=== PATIENT | female | born 1960 | race Caucasian/White ===

== ENCOUNTER → 2017-06-14 | Outpatient (CLI) | payer BC ==
[2017-06-14 14:02] LABS: CHOLESTEROL/HDL RATIO 4.5
== END | disposition home or self-care (01) ==
LOC: C.LABMFLN 08:15
PROVIDERS: ATTEND Family Medicine
DX: E78.00 Pure hypercholesterolemia, unspecified (principal)

== ENCOUNTER 2022-06-23 05:01 | Observation (INO) ==
--- NOTE | 2022-05-25 11:08 | PAT Medication Instructions ---
Medication Instructions Date of Service May 25, 2022 Home Medications Lactobacillus rhamnosus GG 10 billion cell capsule (Culturelle) 1 cap PO QAM alprazolam 0.25 mg tablet 0.25 mg PO UD PRN escitalopram oxalate 20 mg tablet (Lexapro) 20 mg PO QAM DO NOT take the morning of surgery Lactobacillus rhamnosus GG 10 billion cell capsule (Culturelle) 1 cap PO QAM Take morning of surgery With a small sip of water, OTHERWISE NOTHING TO EAT OR DRINK AFTER MIDNIGHT: alprazolam 0.25 mg tablet 0.25 mg PO UD PRN (if needed) escitalopram oxalate 20 mg tablet (Lexapro) 20 mg PO QAM Take evening before surgery alprazolam 0.25 mg tablet 0.25 mg PO UD PRN (if needed) Other Notes If you have any questions please call us at [phone] or [phone] or [phone] or [phone]
--- NOTE | 2022-05-28 13:33 | Anesthesiology Consultation ---
Date of Service May 28, 2022 Assessment & Plan (1) Encounter for pre-operative examination: - Patient acceptable risk for surgery pending surgeon-ordered PCP preop evaluation ([facility]; 06/10). - COVID screening: Per assessment on 05/28: No known COVID-19 positive contacts or current COVID-19 related symptoms. Travel screen- plan for upcoming travel to [place] (05/30-06/05). Patient vaccinated. Surgeon arranging preop COVID testing. Awaiting results. Chart Review Chart Review: Patient seen in Pre Admission Testing History Surgery Operation Date: 06/23/22 09:25 Proposed Procedures p Right Total Knee Arthroplasty - Jared Reyes MD Height/Weight Height: 5 ft 5.5 in Weight: 91.9 kg Allergies Allergy/AdvReac Type Severity Reaction Status Date / Time No Known Allergies Allergy Verified 05/21/22 11:49 Medications Home Medications Medication Instructions Recorded Confirmed Last Taken Lactobacillus rhamnosus GG 10 1 cap PO QAM 05/21/22 05/21/22 Unknown billion cell capsule (Culturelle) alprazolam 0.25 mg tablet 0.25 mg PO UD PRN 05/21/22 05/21/22 Unknown escitalopram oxalate 20 mg tablet 20 mg PO QAM 05/21/22 05/21/22 Unknown (Lexapro) Past Medical History Medical History Generalized anxiety disorder Obesity Osteoarthritis of knees, bilateral Personal history of breast cancer 2004 > right breast lumpectomy, chemo, xrt, herceptin No limb restriction per pt Personal history of lung cancer 2008 s/p right wedge resection Exercise / Class Metabolic Activity II 4-5 Yardwork/Stairs/Walk up hill Past Family History Family History Mother Myocardial infarction Father Myocardial infarction Brother Myocardial infarction Other No pertinent family history Denies family history of Ovarian cancer Prostate cancer Breast cancer Past Surgical History Surgical History History of ankle surgery Left History of breast biopsy History of delivery History of colonoscopy Most recent 10 years ago, upcoming colonoscopy scheduled 06/08/22 History of lumpectomy of right breast History of tonsillectomy History of tubal ligation S/P lobectomy of lung Right wedge resection Past Anesthesia History No Hx of Anesthesia Complications and No Family Hx of Anesthesia Complications History of PONV No Hx of PONV and No Hx of Motion Sickness Social History Smoking Status: Former smoker tobacco type: cigarettes Do You Dip or Chew Tobacco: No Smoking End Date: SMOKED 25 YR AGO , QUIT 2004 Hx Alcohol Use: Yes (SOCIALLY) Alcohol type: beer, wine and hard liquor alcohol intake frequency: holidays/special occasions only Hx Substance Use: No substance use type: does not use Review of Systems Patient denies chest pain, shortness of breath, dyspnea on exertion, fever, chills, cough, wheezing, palpitations. Physical Exam Vital Signs VITALS BP 120/72 P 74 TEMP 98.4 SP02 97%RA RESP 18 PHYSICAL Full cervical extension range of motion. Full TMJ range of motion. TMD 3 finger breaths Mallampati Score 3 Dentition: upper/lower partials Lungs: clear throughout to auscultation Cardiac: regular rate and rhythm, no murmurs noted Spine: normal Carotid arteries: negative bruit Extremities: no edema Lab Results Anesthesia Preop Results Results Anesthesia Widget: WBC 3.86 K/ul (4.8-10.8) L 05/28/22 Hgb 13.2 g/dl (12.0-16.0) 05/28/22 Hct 40.1 % (34.1-44.9) 05/28/22 Plt 194 K/uL (130-400) 05/28/22 Na 138 mmol/L (136-145) 05/28/22 K 3.9 mmol/L (3.5-5.1) 05/28/22 Cl 104 mmol/L (98-107) 05/28/22 CO2 28 mmol/L (21-32) 05/28/22 BUN 16 mg/dl (6-23) 05/28/22 Creat 0.80 mg/dl (0.6-1.2) 05/28/22 Glucose Level 123 mg/dl (70-99(Fasting)) H 05/28/22 PT 10.6 Seconds (9.0-12.0) 05/28/22 PTT 23.9 Seconds (21.0-31.0) 05/28/22 INR 1.0 (0.9-1.1) 05/28/22 HA1c 5.8 % (4.5-5.6) H 05/28/22 Urine Color Yellow 05/28/22 Urine Appearance Clear (Clear) 05/28/22 Urine pH 5.5 (4.5-7.5) 05/28/22 Urine Specific [place] 1.013 (1.000-1.030) 05/28/22 Urine Protein Negative (Negative) 05/28/22 Urine Glucose (UA) Negative (Negative) 05/28/22 Urine Ketones Negative (Negative) 05/28/22 Urine Blood Negative (Negative) 05/28/22 Urine Nitrite Negative (Negative) 05/28/22 Urine Bilirubin Negative (Negative) 05/28/22 Urine Urobilinogen Negative (Negative) 05/28/22 Urine Leukocyte Esterase Negative (Negative) 05/28/22 Blood Type A Positive 05/28/22 Antibody Screen NEGATIVE 05/28/22 Testing Laboratory Results Low WBC > surgeon's office made aware. Electrocardiogram Date: 05/28/22 NSR at 68bpm. Possible inferior infarct, age undetermined. Echocardiogram Date: 11/25/21 EF 60-65%. No regional motion abnormality. Moderate concentric LVH. No significant valvular disease. Grade 1 diastolic dysfunction. Borderline LAD. Stress Test Date: 08/31/21 Negative exercise stress ECG for ischemia at 94 % MPHR. No arrhythmia. Appropriate blood pressure response to exercise. No chest pain reported. Poor Exercise tolerance. 5.5 METS. Other Testing Chest CT (07/07/21) Redemonstrated postoperative changes of partial right upper lobe resection with staple line present. Minimal groundglass and linear scarring along the margin of the staple line is stable. Case described for millimeter right lower lobe lung nodule is not identified on current exam. Moderate atherosclerotic calcification of the coronary arteries. Few cysts are noted scattered in the liver. No significant new or enlarging lung nodule.
--- NOTE | 2022-06-22 21:39 | History & Physical Report ---
Date of Service June 22, 2022 Assessment & Plan (1) Primary osteoarthritis of right knee: Plan: Treatment options discussed with patient. She has failed conservative measures and would like to proceed with surgery. Risks, benefits and alternatives to surgery including but not limited to infection, DVT, pain, stiffness, need for revision surgery, damage to blood vessels, damage to nerves, PE, , were discussed with the patient and they wish to proceed. Plan on right total knee arthroplasty. Surgery scheduled for [facility] with Dr. Reyes on 06/22/22. Will plan on aspirin 81mg BID x 1 mo post op for DVT prophylaxis. Will plan on inpatient rehab. All questions answered. F/u post op. History of Present Illness Chief Complaint: Right knee pain Primary Care Provider: Cedrick Ramos MD 62 year old female with PMHx significant for hx of breast Ca, hx of lung Ca, anxiety presents with ongoing right knee pain. Pain interfering with her daily activities. She has failed conservative measures and would like to proceed with surgical intervention. Patient denies headaches, sweats, fevers, chills, double vision, blurred vision, cough, sore throat, dysphagia, chest pain, sob, wheezing, n/v/d/c, numbness, tingling, fatigue, urinary symptoms, mood disorders. ROS positive for right knee pain and stiffness. Allergies Allergy/AdvReac Type Severity Reaction Status Date / Time No Known Allergies Allergy Verified 05/21/22 11:49 Home Medications Medication Instructions Recorded Confirmed Type Lactobacillus rhamnosus GG 10 1 cap PO QAM 05/21/22 05/21/22 History billion cell capsule (Culturelle) escitalopram oxalate 20 mg tablet 20 mg PO QAM 05/21/22 05/21/22 History (Lexapro) Past Med/Surg History Medical History (Updated 06/22/22 @ 21:35 by Yariel Maki PA-C) Encounter for mammogram to establish baseline mammogram Generalized anxiety disorder History of adenocarcinoma of lung Obesity Osteoarthritis of knees, bilateral Personal history of breast cancer 2004 > right breast lumpectomy, chemo, xrt, herceptin No limb restriction per pt Personal history of lung cancer 2008 s/p right wedge resection Prediabetes Surgical History History of ankle surgery Left History of breast biopsy History of delivery History of colonoscopy Most recent 10 years ago, upcoming colonoscopy scheduled 06/08/22 History of lumpectomy of right breast History of tonsillectomy History of tubal ligation S/P lobectomy of lung Right wedge resection Family History Mother Myocardial infarction Father Myocardial infarction Brother Myocardial infarction Other No pertinent family history Denies family history of Ovarian cancer Prostate cancer Breast cancer Social History Smoking Status: Former smoker Hx Alcohol Use: Yes (SOCIALLY) Alcohol type: beer, wine and hard liquor Hx Substance Use: No Preferred Language: American Communication Ability: Effective Visual Impairment: No Limitations Hearing Ability: Use of Hearing Aid Training And Development Rep Required: No Beliefs That Will Affect Care: None marital status: Current Living Situation: Alone current occupational status: employed current occupation: [id number] Feels Safe at Home: Yes Childhood Exposure to Second-Hand Smoke: Yes caffeine: Yes during the past year weight has: increased > 10 lbs Dental Care, Regularly: Yes Physical Activity Frequency: 3-4 Times per Week Seatbelt Use: always Sunscreen Use: Yes Assistive Devices: Glasses Review of Systems All systems reviewed & are unremarkable except as noted in HPI & below Physical Exam Constitutional: well developed and well nourished; no acute distress Eyes: PERRL, conjunctivae normal, anicteric sclerae ENMT: external ear and nose normal, oropharynx normal Neck: trachea midline, no thyromegaly Respiratory: normal respiratory effort, lungs clear to auscultation Cardiovascular: RRR, no murmur, no edema Musculoskeletal: Right knee: Varus alignment. Tenderness medial joint line. Mild effusion. ROM 0-135 degrees. Stable to valgus and varus stress Skin: no rashes, warm and dry Neurologic: patellar DTR's 2+ bilat, sensation intact Psychiatric: A+Ox3, euthymic affect Results & Data ([facility]) Diagnostic Findings Right knee: Significant joint space narrowing medial compartment. There is periarticular osteophyte formation.
[2022-06-23] MEDS ORDERED: ceFAZolin 2000MG 2,000 MG/15 ML SYR IV SCH (06:00)
[2022-06-23] MEDS ORDERED: TRANEXAMIC ACID 1,000 MG **IV Pre-op IV SCH (06:00)
[2022-06-23] MEDS ORDERED: FAMOTIDINE 20 MG TAB PO SCH (06:00)
[2022-06-23] MEDS ORDERED: GABAPENTIN 600 MG DOSE PO SCH (06:00)
[2022-06-23] MEDS ORDERED: ROPIVACAINE 0.5% HCL/PF 150 MG, BUPIVACAINE 0.75% MPF 20 ML, EPINEPHrine 30MG/30ML (OR ... INSTIL SCH (06:00)
[2022-06-23] MEDS ORDERED: CeleBREX 200 MG CAP PO SCH (06:00)
[2022-06-23] MEDS ORDERED: ACETAMINOPHEN 500 MG TAB PO SCH (06:00)
[2022-06-23] MEDS ORDERED: METOCLOPRAMIDE HCL 10 MG TABLET PO SCH (06:00)
[2022-06-23] MEDS ORDERED: dexAMETHasone 4 MG TAB PO SCH (06:00)
[2022-06-23] MEDS ORDERED: TRANEXAMIC ACID 1,000 MG **IV Intra-op IV SCH (06:00)
[2022-06-23] MEDS ORDERED: LR 500ML BOLUS, THEN 15ML/HR IV SCH (06:00)
[2022-06-23] MEDS ORDERED: ROPIVACAINE 0.5% 5 MG/ML 30 ML VIAL ONE (06:28)
[2022-06-23] MEDS ORDERED: BUPIVACAINE 0.5 % 5 MG/1 ML PF 10ML VIAL ONE (06:28)
[2022-06-23] MEDS ORDERED: ORTHO JOINT ANESTHETIC ONE (06:59)
[2022-06-23] MEDS ORDERED: MIDAZOLAM HCL 1 MG/ML 2ML VIAL ONE (07:00)
[2022-06-23] MEDS ORDERED: LIDOCAINE 2% 20 MG/ML 5 ML SYR IV ONE (07:00)
[2022-06-23] MEDS ORDERED: PROPOFOL IV EMULSION 10 MG/ML 20 ML VIAL IV ONE ×3 (07:00→08:25)
[2022-06-23] MEDS ORDERED: fentaNYL citrate 100 MCG/2 ML VIAL ONE (07:01)
--- NOTE | 2022-06-23 07:01 | History & Physical Bridge Note ---
Date of Service June 23, 2022 History & Physical Bridge Note I have examined the patient, reviewed the History & Physical and in the interval since the performance of the History & Physical I have noted the following changes of clinical significance: no changes noted
[2022-06-23] MEDS ORDERED: PROMETHAZINE HCL 12.5 MG in SODIUM CHLORIDE 0.9% 50 ML IV PRN (07:41)
[2022-06-23] MEDS ORDERED: HYDROmorphone INJ 2 MG/ML SYR/VIAL IV PRN (07:41)
[2022-06-23] MEDS ORDERED: ePHEDrine sulfate 50 MG/ML AMP IV PRN (07:41)
[2022-06-23] MEDS ORDERED: ATROPINE SULFATE 0.1 MG/ML 10ML SYR IV PRN (07:41)
[2022-06-23] MEDS ORDERED: ONDANSETRON INJ 2 MG/ML 2 ML VIAL IV PRN ×2 (07:41→11:15)
[2022-06-23] MEDS ORDERED: fentaNYL citrate 100 MCG/2 ML VIAL IV PRN (07:41)
[2022-06-23] MEDS ORDERED: ONDANSETRON INJ 2 MG/ML 2 ML VIAL ONE (08:25)
--- NOTE | 2022-06-23 09:41 | Post Operative Brief Note ---
Immediate Post Op Note v1 Date of Surgery June 23, 2022 Pre & Post Diagnosis Operation Date: 06/23/22 07:15 Pre-Op Diagnosis: Right Knee Osteoarthritis Post-Op Diagnosis: Right Knee Osteoarthritis I identified the patient and participated in the time-out.: Yes Procedure Operation Date: 06/23/22 07:15 Actual Procedures p Right Total Knee Arthroplasty(Right) lateral release, application superficial wound VAC- Jared Reyes MD Surgeon Jared Reyes MD Mechanical Service Representative Jc MONTGOMERY Estimated Blood Loss 5 Findings Consistent with Post-Op Diagnosis Specimens Bone cuts Drains Hemovac Drain Anesthesia Type MAC Spinal Regional Complications none Disposition Disposition: Recovery Room Overlapping Procedure I was immediately available: during the entire case.
--- NOTE | 2022-06-23 09:58 | XRay Report ---
RIGHT KNEE 2 VIEWS History: Right total knee arthroplasty. Degenerative arthritis. Postop. FINDINGS: The patient is status post a right total knee arthroplasty. The hardware is intact. No frac ture or dislocation. Skin igor and surgical drains are in place. IMPRESSION: Right total knee arthroplasty. No evidence for hardware complication. ACT 112: Negative or not required by law. Electronically signed by: Polo Brooke M.D. 06/23/2022 9:57 AM
--- NOTE | 2022-06-23 10:24 | Operative Report ---
Post Operative Report Pre & Post Diagnosis Operation Date: 06/23/22 07:15 Pre-Op Diagnosis: Right Knee Osteoarthritis Post-Op Diagnosis: Right Knee Osteoarthritis I identified the patient and participated in the time-out.: Yes Procedure Operation Date: 06/23/22 07:15 Actual Procedures p Right Total Knee Arthroplasty(Right), lateral release, superficial wound VAC application- Jared Reyes MD Surgeon Jared Reyes MD Tire Mold Tester Jc MONTGOMERY Estimated Blood Loss 5 Findings Consistent with Post-Op Diagnosis Specimens Bone cuts Drains 2 Hemovac Anesthesia Type MAC Spinal Regional Complications none Disposition Disposition: Recovery Room Indications 62-year-old female with a chronic progressive exercise and right knee failed conservative management. Radiographs demonstrates she has varus knee [id number] medial compartment and moderately advanced patellofemoral osteoarthritis with patellofemoral osteophytes. Description of Procedure Patient was taken to the operating room placed supine on the operating table and anesthetized under spinal MAC regional block anesthesia. Exam under anesthesia demonstrated no instability slight flexion contracture of 5 degrees good flexion to at least 130 degrees and a small moderate effusion. A pneumatic tourniquet was placed about the moderately obese thigh of the right lower extremity. The right lower extremity was prepped and draped in usual sterile fashion. The leg was elevated exsanguinated with an Esmarch bandage and the pneumatic tourniquet was raised to 325 mm mercury. An anterior incision was made across the right knee. The skin was incised longitudinally subcutaneous flaps were elevated and an incision was made through the medial retinaculum extending up into the mid third of the quadriceps tendon and extended down to the medial tibial tubercle. Intra-articular findings demonstrated grade 4 eburnated bone medial compartment with a varus knee and grade 3 patellofemoral osteoarthritis with patellar osteophytes. The knee was exposed by excising the infrapatellar fat pad, excising the meniscal remnants and anterior cruciate ligament. Any inflamed synovial tissue was resected. The fat pad over the anterior femur was resected for placement of the component in that area. The lateral synovial bands were release. The femur was exposed. The custom femoral cutting block was pinned in position. The distal femoral cutting block was applied. The distal femoral cut was made with the oscillating saw. The size 10, 4-in-1 cutting block was placed . The anterior and posterior chamfer cuts were made. The knee was extended and a subperiosteal peel lateral release was performed around the patella. The patella width was measured and width was reproduced using freehand cut technique. The 35 x 9 millimeter symmetrical patella was used. 3 drill holes are made for the pegs. The tibia was exposed. A custom tibial cutting block was positioned and drill holes were made for the cutting guide. Cutting guide was placed and the proximal cut was made with the oscillating saw. All osteophytes were resected. The lamina care transitions manager was used to assess ligamentous balance and the ligaments were balanced in extension and flexion. This required medial and minor posterior medial release. The tibia was reexposed and measured for a size E tibial component. This was externally rotated in line with the tibial tubercle and the fixation pins were drilled. The proximal tibia was fashioned with the drill and punch. The size 10 CR femoral trial was inserted. The trial MC inserts were used. The 10 mm insert gave balanced ligaments through full range of motion. The patella tracked with some slight lateral tilt so I did a lateral release leaving the synovium intact and the patella tracked centrally. the trials were removed. The orthomix anesthetic cocktail was injected per protocol. The knee was then copiously irrigated with pulsatile lav age saline solution. The final components were cemented with Refobacin bone cement. The final components were [employer] persona 10 standard CR right femoral component, right E tibial component, 10 right MC polyethylene, 35 x 9 mm symmetrical patella. After the cement cured with the knee in full extension the Betadine soak was used per protocol. The knee joint was copiously irrigated with pulsatile lavage saline solution . 2 drains were brought out laterally and connected to a Hemovac. The quadriceps tendon and medial retinaculum were closed with interrupted [id number] #1 Vicryl sutures. The knee was taken through a full range of motion and repair was secure. The subcutaneous tissues were closed with 2-0 Vicryl sutures and skin was closed with igor. [place] and Acticoat superficial wound VAC was applied and the patient tolerated the procedure well. Jc MONTGOMERY my physician assistant professor of english, assisted in soft tissue retraction, instrument management ,leg positioning, the closure application superficial wound VAC and will participate in the postoperative care of the patient. I attest to the content of the Intraoperative Record and any orders documented therein. Any exceptions are noted below.
--- NOTE | 2022-06-23 10:58 | Anesthesiology Progress Note ---
Date of Service June 23, 2022 Anesthesia Post Procedure Vital Signs Vital Signs: Temp Pulse Resp BP Pulse Ox O2 Del Method O2 Flow Rate 06/23/22 10:10 53 L 12 112/68 95 Room Air 06/23/22 10:45 57 L 12 111/64 92 Room Air 06/23/22 10:30 36.4 C L 58 L 15 115/79 94 Room Air 06/23/22 10:20 60 12 112/63 94 Room Air 06/23/22 10:00 59 L 12 108/66 100 Oxymask 6 06/23/22 09:50 60 12 117/64 99 Oxymask 6 06/23/22 09:40 36.7 C 67 18 115/71 97 Oxymask 6 06/23/22 05:52 36.8 C 62 18 130/82 97 Room Air Transfer of Care Handoff Completed per policy Notes Mental Status: alert / awake / arousable and participated in evaluation Nausea / Vomiting: adequately controlled Pain: adequately controlled Airway Patency, RR, SpO2: stable & adequate BP & HR: stable & adequate Hydration State: stable & adequate Neuraxial Anesthesia: was administered and sensory block is resolving Anesthetic Complications: no major complications apparent and Pt Satisfied with anesthetic care
[2022-06-23] MEDS ORDERED: bisacodyL 10 MG SUPP PR PRN (11:15)
[2022-06-23] MEDS ORDERED: oxyCODONE HCL IR 5 MG TAB (IMMEDIATE RELEASE) PO PRN (11:15)
[2022-06-23] MEDS ORDERED: SODIUM CHLORIDE 0.9% 1000ML 1,000 ML IV SCH (11:15)
[2022-06-23] MEDS ORDERED: NALOXONE HCL 0.4 MG/1 ML VIAL/CARP IV PRN (11:15)
[2022-06-23] MEDS ORDERED: METOCLOPRAMIDE HCL INJ 5 MG/ML 2 ML VIAL IV PRN (11:15)
[2022-06-23] MEDS ORDERED: MAGNESIUM HYDROXIDE SUSP 30 ML UDC PO PRN (11:15)
[2022-06-23] MEDS ORDERED: HYDROmorphone INJ 0.5 MG/0.5 ML SYR IV PRN (11:15)
--- NOTE | 2022-06-23 11:55 | History & Physical Report ---
Date of Service June 23, 2022 Assessment & Plan Admission and Anticipated Discharge Date Admission Date: June 23, 2022 History of Present Illness Primary Care Provider: Cedrick Ramos MD Allergies Allergy/AdvReac Type Severity Reaction Status Date / Time No Known Allergies Allergy Verified 06/23/22 05:51 Home Medications Medication Instructions Recorded Confirmed Type Lactobacillus rhamnosus GG 10 1 cap PO QAM 05/21/22 06/23/22 History billion cell capsule (Culturelle) escitalopram oxalate 20 mg tablet 20 mg PO QAM 05/21/22 06/23/22 History (Lexapro) Past Med/Surg History Medical History Encounter for mammogram to establish baseline mammogram Generalized anxiety disorder History of adenocarcinoma of lung Obesity Osteoarthritis of knees, bilateral Personal history of breast cancer 2004 > right breast lumpectomy, chemo, xrt, herceptin No limb restriction per pt Personal history of lung cancer 2008 s/p right wedge resection Prediabetes Surgical History History of ankle surgery Left History of breast biopsy History of delivery History of colonoscopy Most recent 10 years ago, upcoming colonoscopy scheduled 06/08/22 History of lumpectomy of right breast History of tonsillectomy History of tubal ligation S/P lobectomy of lung Right wedge resection Family History Mother Myocardial infarction Father Myocardial infarction Brother Myocardial infarction Other No pertinent family history Denies family history of Ovarian cancer Prostate cancer Breast cancer Social History Smoking Status: Former smoker Smoking End Date: SMOKED 25 YR AGO , QUIT 2004; Do You Dip or Chew Tobacco: No; Hx Alcohol Use: Yes (SOCIALLY) Alcohol type: beer, wine and hard liquor Hx Substance Use: No Preferred Language: Frisian Communication Ability: Effective Visual Impairment: No Limitations Hearing Ability: Use of Hearing Aid Tug Boat Engineer Required: No Beliefs That Will Affect Care: None marital status: Current Living Situation: Alone current occupational status: employed current occupation: [id number] [place] Feels Safe at Home: Yes Childhood Exposure to Second-Hand Smoke: Yes caffeine: Yes during the past year weight has: increased > 10 lbs Dental Care, Regularly: Yes Physical Activity Frequency: 3-4 Times per Week Seatbelt Use: always Sunscreen Use: Yes Assistive Devices: Glasses Assistive Devices Comment: UPPER AND LOWER PARTIAL Results & Data Results & Data ([facility]) Vital Signs (Past 12 Hours) Vital Signs Temp Pulse Resp BP Pulse Ox O2 Del Method O2 Flow Rate 06/23/22 11:35 36.6 C 56 L 16 123/73 97 Room Air 06/23/22 11:05 36.7 C 54 L 14 127/74 94 Room Air 06/23/22 10:10 53 L 12 112/68 95 Room Air 06/23/22 10:45 57 L 12 111/64 92 Room Air 06/23/22 10:30 36.4 C L 58 L 15 115/79 94 Room Air 06/23/22 10:20 60 12 112/63 94 Room Air 06/23/22 10:00 59 L 12 108/66 100 Oxymask 6 06/23/22 09:50 60 12 117/64 99 Oxymask 6 06/23/22 09:40 36.7 C 67 18 115/71 97 Oxymask 6 06/23/22 05:52 36.8 C 62 18 130/82 97 Room Air Code Status & VTE Plan VTE Prophylaxis Plan VTE Prophylaxis will be ordered: Yes PG Care Time/CCT Total # of Minutes Spent Total Time Spent with Patient: Total time spent is greater than 50% in coordination of care (as documented) at patient's floor/unit and/or counseling patient: Coding
--- NOTE | 2022-06-23 11:57 | Hospitalist Consultation ---
Date of Consultation June 23, 2022 Assessment & Plan (1) Primary osteoarthritis of right knee: - s/p right TKA, POD #0, EBL 5cc, without complications, with [address]. - pain/abx/activity/IVF per primary team - ASA 81mg BID prescribed for VTE ppx per primary team - rescue narcan ordered prn. - incentive spirometry ordered - CBC and BMP in AM. - Cr on outpt labs may 2022 = 0.80, hgb = 13.2 (2) Dyslipidemia: - currently diet controlled, no medications. - last lipid panel in 2019: triglycerides 141, cholesterol 228, LDL 152, HDL 48 (3) Prediabetes: - a1c 06/11 = 5.8%, currently managed with diet/exercise. - check glucose on BMP in AM, no need for accucheks/SSI currently (4) Anxiety: - continue lexapro 20 mg daily. (5) Restrictive lung disease: - seen by pulm in October 2021, PFTS indicate moderate restrictive lung disease, normal GEGE and severe decrease in ERV without obstruction. - Chest CT without mediastinal lymphadenopathy, echo without abnormalities. - thought to be due to RUL wedge resection in 2008 for cancer as well as obesity - uses albuterol inhaler prn, has not used "in months", is available should patient request it. (6) History of adenocarcinoma of lung: - 2008, s/p RUL wedge resection. no additional treatment (7) Personal history of breast cancer: - in 2004, s/p right lumpectomy, chemotherapy, radiation. (8) BPPV (benign paroxysmal positional vertigo): - history of, currently without symptoms. Supervising Physician Co-Signing Physician Notes Patient seen and examined, chart reviewed, case discussed with Ria Choi PA-C and I agree with the assessment and plan as above except as otherwise noted above. General: A&Ox3. NAD. Cooperative. HEENT: Atraumatic, normocephalic. Vision/hearing intact. Pulm: CTAB A&P. -wheezes, -rales, -rhonchi. Symmetrical chest rise. No increased work of breathing. No respiratory distress. Cardiac: RRR, -mrg. Radial pulses intact and symmetrical. Abdominal: Nontender, nondistended, soft. BS present. Ext: RLE with post-op dressing/drain inplace. Toe flexion/extension intact. Sensation to soft touch intact but diminished in R toes compared to L, just starting to return postop per pt. Gabi is a 62yo F with a PMHx of RLD, BPPV, baseline EKG changes stable 07/2021- 08/2021 w/ normal stress echo EF 60% 11/2021, anxiety on lexapro previously weaned from alprazolam, preDM with A1C 5.8 05/2022, HLD s/p total R knee arthroplasty 06/23/22. Post-operatively doing well and hemodynamically stable, normal O2 sat on room air. R Knee OA s/p Total R Knee 06/23/22 w/ Dr. Reyes - Pain control/activity/DVT PPx per primary team - Currently taking APAP 1g Q8H with adequate pain control at time of assessment Pre-DM - Preop A1C 5.8% - Diet/Excercise controlled - AM BMP, - Goal BSG <140, +conservative SSI if significantly elevated Anxiety - Continue lexapro 20mg PO qAM RLD, hx wedge resection - Adenocarcinoma s/p wedge resection ~2008 - Last PFT 08/2021: FVC 71%, FEV1 73%, FEV1/FVC 101%, no signoficant post- bronchodilator response. - Mild restrictive lung disease on dana as above, some symptomatic benefit from albuterol PRN prescribed by pulm and reports has not needed recently. Can continue albuterol PRN for wheezing. - Normal Spo2 on room air, no wheezing, at respiratory baseline at time of consultation BPPV - No acute sx, no acute management at this time No renal dysfunction, cr <1 at baseline and at baseline on preop labs. BMP as noted Preop EKG: nsr, qtc 421ms, no ST segment abnormalities. Exercise stress test 08/2021 engative for ischemia at 94% MPHR and no arrhythmia. History of Present Illness Reason for Consultation: post-operative medication management Requesting Physician: Jared Reyes MD Attending Physician: Jared Reyes MD History of Present Illness Gabi Soria is a 62 y/o female with a PMH of hyperlipidemia and pre- diabetes both diet controlled, BPPV breast cancer in 2004 s/p right lumpectomy and chemo+radiation, lung cancer in 2008 s/p wedge resection, restrictive lung disease, and anxiety who was admitted today 06/23/22 for a right TKA with Dr. Reyes after failing conservative treatment. Hospitalist group was consulted for post-operative medication management. Today, she is POD#0 and feels well. Denies fever/chills, chest pain, palpitations, SOB, cough, abdominal pain, n/v/d, numbness, tingling, weakness. Feels hungry, pain controlled, breathing easily on own, SpO2 > 95% on RA. Allergies Allergy/AdvReac Type Severity Reaction Status Date / Time No Known Allergies Allergy Verified 06/23/22 05:51 Home Medications Medication Instructions Recorded Confirmed Type Lactobacillus rhamnosus GG 10 1 cap PO QAM 05/21/22 06/23/22 History billion cell capsule (Culturelle) escitalopram oxalate 20 mg tablet 20 mg PO QAM 05/21/22 06/23/22 History (Lexapro) Patient History Medical History (Updated 06/23/22 @ 12:32 by Ria Choi PA-C) Encounter for mammogram to establish baseline mammogram Generalized anxiety disorder History of adenocarcinoma of lung Obesity Osteoarthritis of knees, bilateral Personal history of breast cancer 2004 > right breast lumpectomy, chemo, xrt, herceptin No limb restriction per pt Personal history of lung cancer 2008 s/p right wedge resection Prediabetes Surgical History History of ankle surgery Left History of breast biopsy History of delivery History of colonoscopy Most recent 10 years ago, upcoming colonoscopy scheduled 06/08/22 History of lumpectomy of right breast History of tonsillectomy History of tubal ligation S/P lobectomy of lung Right wedge resection Family History Mother Myocardial infarction Father Myocardial infarction Brother Myocardial infarction Other No pertinent family history Denies family history of Ovarian cancer Prostate cancer Breast cancer Social History Smoking Status: Former smoker Smoking End Date: SMOKED 25 YR AGO , QUIT 2004; Do You Dip or Chew Tobacco: No; Hx Alcohol Use: Yes (SOCIALLY) Alcohol type: beer, wine and hard liquor Hx Substance Use: No Preferred Language: Lao Communication Ability: Effective Visual Impairment: No Limitations Hearing Ability: Use of Hearing Aid Professional Development Director Required: No Beliefs That Will Affect Care: None marital status: Current Living Situation: Alone current occupational status: employed current occupation: [id number] Feels Safe at Home: Yes Childhood Exposure to Second-Hand Smoke: Yes caffeine: Yes during the past year weight has: increased > 10 lbs Dental Care, Regularly: Yes Physical Activity Frequency: 3-4 Times per Week Seatbelt Use: always Sunscreen Use: Yes Assistive Devices: Glasses Assistive Devices Comment: UPPER AND LOWER PARTIAL Review of Systems Review of Systems: Constitutional: No fever/chills, weakness, fatigue, myalgias, anorexia, night sweats Eyes: No diplopia, no worsening or blurred vision ENT: normal hearing, no trouble swallowing Respiratory: No cough, sputum, dyspnea at rest or on exertion Cardiovascular: No chest pain, tightness or palpitations Abdomen: No pain, nausea, vomiting, diarrhea or constipation : Denies dysuria, hematuria, increased urgency/frequency, urinary retention Musculoskeletal: No joint pain, calf pain, swelling Neurologic: No weakness, numbness/tingling, or balance problems Psychiatric: No anxiety or depression Skin: No rash or itch Physical Exam Physical Exam: General: awake, alert, no apparent distress Head: Normocephalic, atraumatic ENT: PERRL, EOMI, no pharyngeal exudate, mucous membranes moist Chest: Clear to auscultation, on room air, no adventitious breath sounds Cardiac: Regular rate and rhythm, no murmur, no JVD, normal peripheral pulses, good capillary refill Abdominal: NABS x 4 quadrants, soft, nontender to palpation, no rebound, guarding or tenderness Extremities: right leg in wrap with Hemovac drains in place, 2+ pulses, sensation intact, good cap refill; overall normal inspection, no peripheral tiffany ma or erythema, calfs nontender to palpation Psych: Normal mood and affect Neuro: AAO x 3, strength intact bilaterally and rated 5/5, no motor deficits, speech is clear, no peripheral sensory deficits Skin: no rash or erythema Results & Data Results & Data ([facility]) Vital Signs (Past 12 Hours) Vital Signs Temp Pulse Resp BP Pulse Ox O2 Del Method O2 Flow Rate 06/23/22 11:35 36.6 C 56 L 16 123/73 97 Room Air 06/23/22 11:05 36.7 C 54 L 14 127/74 94 Room Air 06/23/22 10:10 53 L 12 112/68 95 Room Air 06/23/22 10:45 57 L 12 111/64 92 Room Air 06/23/22 10:30 36.4 C L 58 L 15 115/79 94 Room Air 06/23/22 10:20 60 12 112/63 94 Room Air 06/23/22 10:00 59 L 12 108/66 100 Oxymask 6 06/23/22 09:50 60 12 117/64 99 Oxymask 6 06/23/22 09:40 36.7 C 67 18 115/71 97 Oxymask 6 06/23/22 05:52 36.8 C 62 18 130/82 97 Room Air Diagnostic Findings Knee X-Ray 06/23/22 09:42 RIGHT KNEE 2 VIEWS History: Right total knee arthroplasty. Degenerative arthritis. Postop. FINDINGS: The patient is status post a right total knee arthroplasty. The hardware is intact. No fracture or dislocation. Skin igor and surgical drains are in place. IMPRESSION: Right total knee arthroplasty. No evidence for hardware complication. ACT 112: Negative or not required by law. Electronically signed by: Polo Brooke M.D. 06/23/2022 9:57 AM PG Care Time/CCT Total # of Minutes Spent Total Time Spent with Patient: Total time spent is greater than 50% in coordination of care (as documented) at patient's floor/unit and/or counseling patient: Coding Level of Care Code 79468 Office/OBS Consult Lvl 2 Diagnoses Primary osteoarthritis of right knee M17.11 Dyslipidemia E78.5 Prediabetes R73.03 Anxiety F41.9 Restrictive lung disease J98.4 History of adenocarcinoma of lung Z85.118 Personal history of breast cancer Z85.3 BPPV (benign paroxysmal positional vertigo) H81.10
[2022-06-23] MEDS ORDERED: ALBUTEROL HFA 8 GM INHALER INH PRN (12:13)
[2022-06-23] MEDS: ACETAMINOPHEN 500 MG TAB PO SCH ×2 (13:19→21:05)
[2022-06-23] MEDS: ceFAZolin 2000MG 2,000 MG/15 ML SYR IV SCH (16:07)
[2022-06-23] MEDS ORDERED: SENNA 8.6 MG TAB PO SCH (21:00)
[2022-06-23] MEDS: DOCUSATE SODIUM 100 MG CAP PO SCH (21:06)
[2022-06-23] MEDS: CeleBREX 200 MG CAP PO SCH (21:09)
[2022-06-23] MEDS: ASPIRIN 81 MG ECTAB PO SCH (21:09)
[2022-06-24] MEDS: ceFAZolin 2000MG 2,000 MG/15 ML SYR IV SCH (00:33)
[2022-06-24] MEDS: ACETAMINOPHEN 500 MG TAB PO SCH ×2 (05:49→13:42)
[2022-06-24 06:42] LABS: Hematocrit (blood only) 36.7 % (34.1-44.9); Hemoglobin 12.1 g/dl (12.0-16.0); Mean Corpuscular Hemoglobin 30.3 pg (25.0-34.0); Mean Platelet Volume 10.4 fL (9.4-12.3); Platelet Count 182 K/uL (130-400); RDW Coefficient of Variation 14.1 % (11.5-14.5); RDW Standard Deviation 48.2 fL (36.4-46.3); Red Blood Count 3.99 M/uL (3.93-5.22); White Blood Count 11.47 K/ul (4.8-10.8)
[2022-06-24 07:04] LABS: BUN Creatinine Ratio 19.5 (10-20); Calcium 8.8 mg/dl (8.5-10.1); Creatinine Clr Calc Pharmacy 85.8 ml/min; Est GFR (African American) 95.9 ml/min; Est GFR (Non-African American) 82.8 ml/min; Potassium 4.1 mmol/L (3.5-5.1)
--- NOTE | 2022-06-24 08:02 | Orthopedic Progress Note ---
Date of Service June 24, 2022 Assessment & Plan (1) Primary osteoarthritis of right knee: Plan: Postop day #1 right total knee -PT/OT -Pain management as written -AM labs mild leukocytosis likely reactive due to surgical stress versus perioperative steroids. Asymptomatic. Hemoglobin at 12.1. -DVT prophylaxis: SCDs, teds, aspirin 81 mg twice daily -Discharge planning: Patient is doing well this morning. Initially she felt that she is going to need inpatient rehab within normal but she would be able to go home with home health PT. coordinator volunteer services will meet with patient this morning. We will see how she does with therapy. Possible discharge home today if therapy goes well. Admission and Anticipated Discharge Date Admission Date: June 23, 2022 Subjective Postop day 1 right total knee. Patient is doing well this morning. Has some mild pain with controlled with pain medication. No other complaints. Denies chest pain, shortness of breath, headache/dizziness, nausea/vomiting/diarrhea. Review of Systems Review of Systems: All systems reviewed & are unremarkable except as noted in Subjective Physical Exam Physical Exam: Right knee: Dressing is clean, dry, intact. Toes are mobile with good dorsiflexion. No calf tenderness. Distally neurovascular status and sensation intact. Constitutional: well developed and well nourished; no acute distress Results & Data ([facility]) Vital Signs (Past 12 Hours) Vital Signs Temp Pulse Resp BP Pulse Ox O2 Del Method 06/24/22 07:15 36.8 C 66 16 115/77 94 Room Air 06/24/22 03:06 36.8 C 58 L 16 104/64 92 Room Air 06/23/22 23:24 36.9 C 63 16 95/61 L 94 Room Air Laboratory Results Lab Results 06/23/22 06/24/22 06/24/22 Range/Units 05:23 06:04 06:04 WBC 11.47 H (4.8-10.8) K/ul RBC 3.99 (3.93-5.22) M/uL Hgb 12.1 (12.0-16.0) g/dl Hct 36.7 (34.1-44.9) % MCV 92.0 (80.0-100.0) fL MCH 30.3 (25.0-34.0) pg MCHC 33.0 (32.0-36.0) g/dL RDW Std Deviation 48.2 H (36.4-46.3) fL RDW Coeff of Shiloh 14.1 (11.5-14.5) % Plt Count 182 (130-400) K/uL MPV 10.4 (9.4-12.3) fL Sodium 138 (136-145) mmol/L Potassium 4.1 (3.5-5.1) mmol/L Chloride 107 (98-107) mmol/L Carbon Dioxide 28 (21-32) mmol/L Anion Gap 3 (3-11) BUN 15 (6-23) mg/dl Creatinine 0.77 (0.6-1.2) mg/dl Est Cr Clr Drug Dosing 85.8 ml/min Est GFR ( Amer) 95.9 ml/min Est GFR (Non-Af Amer) 82.8 ml/min BUN/Creatinine Ratio 19.5 (10-20) Glucose 121 H (70-99(Fasting)) mg/dl Calcium 8.8 (8.5-10.1) mg/dl SARS-CoV-2, RNA, NAAT NEGATIVE (NEGATIVE)
[2022-06-24] MEDS: CeleBREX 200 MG CAP PO SCH (08:04)
[2022-06-24] MEDS: ASPIRIN 81 MG ECTAB PO SCH (08:04)
[2022-06-24] MEDS: DOCUSATE SODIUM 100 MG CAP PO SCH (08:05)
[2022-06-24] MEDS ORDERED: MULTIVITAMIN TAB PO SCH (09:00)
[2022-06-24] MEDS ORDERED: ADVANCED PROBIOTIC 1250 MG CAPSULE PO SCH (09:00)
[2022-06-24] MEDS ORDERED: ESCITALOPRAM OXALATE 20 MG TAB PO SCH (09:00)
--- NOTE | 2022-06-24 14:31 | Discharge Summary ---
Date of Service June 24, 2022 Admission HPI Per Admitting Provider 62 year old female with PMHx significant for hx of breast Ca, hx of lung Ca, anxiety presents with ongoing right knee pain. Pain interfering with her daily activities. She has failed conservative measures and would like to proceed with surgical intervention. Patient denies headaches, sweats, fevers, chills, double vision, blurred vision, cough, sore throat, dysphagia, chest pain, sob, wheezing, n/v/d/c, numbness, tingling, fatigue, urinary symptoms, mood disorders. ROS positive for right knee pain and stiffness. Admission Exam Per Admitting Provider Constitutional: well developed and well nourished; no acute distress Eyes: PERRL, conjunctivae normal, anicteric sclerae A ENMT: external ear and nose normal, oropharynx normal Neck: trachea midline, no thyromegaly Respiratory: normal respiratory effort, lungs clear to auscultation Cardiovascular: RRR, no murmur, no edema Musculoskeletal: Right knee: Varus alignment. Tenderness medial joint line. Mild effusion. ROM 0-135 degrees. Stable to valgus and varus stress Skin: no rashes, warm and dry Neurologic: patellar DTR's 2+ bilat, sensation intact Psychiatric: A+Ox3, euthymic affect Principal Diagnosis Right knee osteoarthritis Discharge Exam Right knee: Dressing is clean, dry, intact. Toes are mobile with good dorsiflexion. No calf tenderness. Distally neurovascular status and sensation intact. Constitutional well developed and well nourished; no acute distress Discharge Data Allergies Allergy/AdvReac Type Severity Reaction Status Date / Time No Known Allergies Allergy Verified 06/23/22 05:51 Consultations 06/21/22 11:31 Consult Hospitalist Routine Procedures Performed Operation Date: 06/23/22 07:15 Actual Procedures p Right Total Knee Arthroplasty(Right) - Jared Reyes MD Ordered Studies 06/23/22 05:00 US - OR guided needle placemen Routine Hospital Course (1) Primary osteoarthritis of right knee: Postop day #1 right total knee -PT/OT -Pain management as written -AM labs mild leukocytosis likely reactive due to surgical stress versus perioperative steroids. Asymptomatic. Hemoglobin at 12.1. -DVT prophylaxis: SCDs, teds, aspirin 81 mg twice daily -Discharge planning: Patient is doing well this morning. Initially she felt that she is going to need inpatient rehab within normal but she would be able to go home with home health PT. patient services clerk will meet with patient this morning. We will see how she does with therapy. Possible discharge home today if therapy goes well. Lab Results 06/23/22 06/24/22 06/24/22 Range/Units 05:23 06:04 06:04 WBC 11.47 H (4.8-10.8) K/ul RBC 3.99 (3.93-5.22) M/uL Hgb 12.1 (12.0-16.0) g/dl Hct 36.7 (34.1-44.9) % MCV 92.0 (80.0-100.0) fL MCH 30.3 (25.0-34.0) pg MCHC 33.0 (32.0-36.0) g/dL RDW Std Deviation 48.2 H (36.4-46.3) fL RDW Coeff of Shiloh 14.1 (11.5-14.5) % Plt Count 182 (130-400) K/uL MPV 10.4 (9.4-12.3) fL Sodium 138 (136-145) mmol/L Potassium 4.1 (3.5-5.1) mmol/L Chloride 107 (98-107) mmol/L Carbon Dioxide 28 (21-32) mmol/L Anion Gap 3 (3-11) BUN 15 (6-23) mg/dl Creatinine 0.77 (0.6-1.2) mg/dl Est Cr Clr Drug Dosing 85.8 ml/min Est GFR ( Amer) 95.9 ml/min Est GFR (Non-Af Amer) 82.8 ml/min BUN/Creatinine Ratio 19.5 (10-20) Glucose 121 H (70-99(Fasting)) mg/dl Calcium 8.8 (8.5-10.1) mg/dl SARS-CoV-2, RNA, NAAT NEGATIVE (NEGATIVE) Total Time Total Time Spent Total Time Spent (In Minutes): 20 Discharge Plan Discharge Items Patient Disposition: Home - Self-Care Reason For Visit: Osteoarthritis Right Knee Discharge Diagnosis: Right knee osteoarthritis Activity: Per Instructions section Non-emergency contact: Surgeon Call non-emergency contact if: you have any medication questions, your pain is not controlled, your pain is concerning for you, you have a fever, your temperature is above 101, your wound has increased redness and your wound has increased drainage Follow-up/Referrals: Cedrick Ramos MD [Primary Care Provider] - Diet: Regular Addtl Attending Provider Instructions: ACTIVITY RECOMMENDATIONS: SELF CARE INSTRUCTIONS AFTER TOTAL KNEE REPLACEMENT A. You may need to continue a physical therapy program after discharge from the hospital. There are several options available to you. Your doctor will assist you in selecting the best one for you. 1. An out-patient facility 2 to 3 times a week for therapy or home therapy. 2. Continue working on all exercises taught to you in the hospital. Your goals should be to increase bending of your knee to 90 degrees and beyond and to fully straighten your knee. B. You may progress at your own pace from walking with a walker or crutches to a cane; then to no assistive devices. C. Make walking a part of your daily routine. Be up as much as comfortable with rest periods throughout the day. Rest with leg elevation is very important. Use the ice wrap frequently for the first 3-4 weeks. D. There are no restrictions on activities. You may ride in a car, shop, participate in production operations engineer and all social activities. E. Wear the long elastic stockings (ELODIA hose) 20 hours a day for 2 weeks after surgery. They can be removed several times a day for laundering and for a bath. F. You may shower, no tub baths until cleared by your doctor. SPECIAL CARE INSTRUCTIONS: VERY IMPORTANT TO READ AND REVIEW A. There are a few signs you need to watch for after you are home. Call [facility] if you notice any of the followin. Increased severe knee pain. Some pain is expected especially when you exercise. 2. Increased swelling in your leg or knee; pain or swelling of the calf muscle in either lower leg. 3. Any fluid drainage from the incision. 4. Shortness of breath or chest pain. B. Please call [facility] at if you have any concerns or questions about your operation or recovery. The doctor or his nurse will return your call promptly. C. You must take antibiotics before dental work, bladder, bowel or other surgery. Your doctor will provide you with a permanent care to carry describing this precaution. IMPORTANT: * REMEMBER TO TAKE ASPIRIN, 81 MG, TWICE DAILY FOR 4 WEEKS UNLESS OTHERWISE DIRECTED. THIS IS YOUR BLOOD THINNER. * HIGH RISK PATIENTS MAY BE PRESCRIBED A STRONGER BLOOD THINNER. THIS WILL BE PROVIDED AT DISCHARGE. * CALL IF INCREASED PAIN, REDNESS, DRAINAGE OR FEVER GREATER THAT 101. * WEAR ELODIA HOSE 20 HOURS PER DAY FOR 2 WEEKS. This is a large suction dressing covering your incision. This will help pull any excess drainage from the wound and allow your incision to heal properly. You may shower with this if you can keep the unit outside of the shower. If any bleeding or leakage is noted please call your doctor's office. This will remain on your incision for 7 days and then should be removed. This can be done yourself or by the home nursing staff if applicable. The entire unit is disposable once removed. Once removed, keep incision clean and dry. If redness or drainage is noted, please call your surgeon. IF INCISION IS LEAKING THROUGH DRESSING, CALL THE OFFICE . FOLLOW UP VISIT: If appointment is not already scheduled: Please call [facility] to make a follow-up appointment for 2 weeks after your surgery at . Stand-Alone Forms: [facility] [employer], Opioid Pain Management, Smoking Cessation Medications and DC Order Prescriptions: New celecoxib [Celebrex] 200 mg Capsule 200 mg PO BID 14 Days Qty: 28 0RF aspirin 81 mg Tablet,Delayed Release (Dr/Ec) 81 mg PO BID 30 Days Qty: 60 0RF acetaminophen [Tylenol Extra Strength] 500 mg Tablet 1,000 mg PO Q8 14 Days Qty: 84 0RF polyethylene glycol 3350 [Miralax] 17 gram powder in packet 17 g PO DAILY PRN (Reason: constipation) Qty: 5 0RF oxycodone 5 mg tablet 5 mg PO Q4H MDD 6 PRN (Reason: pain) Qty: 30 0RF Continued Culturelle 10 billion cell Capsule 1 cap PO QAM escitalopram oxalate [Lexapro] 20 mg tablet 20 mg PO QAM Discharge Orders: Discharge Order (Routine); Ordered 06/24/22 Ordered By: Nick Gomez/Other Patient Handouts: Knee Replacement Total Dc Admission Data Admit Date/Time: 06/23/22 09:42 Attending Provider: Jared Reyes Admit Provider: Jared Reyes Primary Care Provider: Cedrick Ramos Other Providers: Christian Clements Other Interventions: Discharge Summary Assessment (RN) Last Done: 06/24/22 14:01
== END 2022-06-24 15:13 | disposition home or self-care (01) ==
LOC: ASU 05:01 → 3E 05:01